=== PATIENT | female | born 1950 | race Caucasian/White ===

== ENCOUNTER → 2020-08-25 | Day surgery (SDC) | payer MEDICARE, OTHER ==
[~2020-08-25] MED LIST: ALBU2.5V14 NEB; HYOS0.3716 PO; IV RINGERS,LACTATED 1000ML 1,000 ML IV SCH; LIDOCAINE 2% PF 5 ML VIAL. ONE; ONDA4TAB12 PO; PROPOFOL 10 MG/ML (20ML) VIAL. IV ONE; VENTOLIN HFA18 GM INH
[2020-08-25 14:04] VITALS: BP 128/65
--- NOTE | 2020-08-30 12:07 | PATHOLOGY ---
[facility] Accession Number: [id number] . 01 Material submitted: . PART A: duodenum - DUODENAL BIOPSY PART B: colon - RANDOM COLON BIOPSY . 01 Clinical history: . ABDOMINAL PAIN AND WEIGHT LOSS ON COLOGUARD MEDICATION FOR A- RULE OUT CELIAC . 02 Diagnosis: A. Small bowel, "duodenum", biopsy: - Duodenal mucosa without significant pathologic alteration. . B. Large bowel, "random colon", biopsy: - Large bowel mucosa without significant pathologic alteration. . (MLK:mml; 08/29/2020) [facility] 08/30/2020 1149 Local . 02 Electronically signed: . Emilee Guevara MD, Pathologist NPI- [id number] . 01 Gross description: . A. The specimen is received in formalin, labeled "Park Lu", "duodenal biopsy rule out celiac". Received are multiple segments of pale moreno soft tissue ranging in size from 0.1 cm to 0.3 cm. The specimen is entirely submitted in cassette A1. . B. The specimen is received in formalin, labeled "Park Lu", "random colon biopsy". Received are multiple segments of pale moreno soft tissue ranging in size from 0.1 cm to 0.3 cm. The specimen is entirely submitted in cassettes B1 and B2.(SNA; 08/26/2020) [facility] 08/26/2020 0927 Local . 02 Pathologist provided ICD-10: R10.9 . 02 CPT . 840803, [id number] Specimen Comment: A courtesy copy of this report has been sent to [phone] Specimen Comment: [id number] Specimen Comment: Report sent to / DR HERNÁNDEZ Performed at: 01 [facility] [address] [id number] MD Francisco Royal MD Phone: [phone] Performed at: 02 [facility] [address] [id number] MD Wolf Pickens MD Phone: [phone]
== END | disposition home or self-care (01) ==
LOC: ENDOS 10:53
PROVIDERS: ATTEND Internal Medicine Gastroenterology
DX: R19.7 Diarrhea, unspecified (principal); R19.5 Other fecal abnormalities; K64.0 First degree hemorrhoids; K57.30 Diverticulosis of large intestine without perforation or abscess without bleeding; R10.13 Epigastric pain; R63.4 Abnormal weight loss; K31.89 Other diseases of stomach and duodenum; K63.89 Other specified diseases of intestine; I10 Essential (primary) hypertension; E78.00 Pure hypercholesterolemia, unspecified; J43.9 Emphysema, unspecified; K21.9 Gastro-esophageal reflux disease without esophagitis; M19.90 Unspecified osteoarthritis, unspecified site; F41.9 Anxiety disorder, unspecified; F32.9 Major depressive disorder, single episode, unspecified; Z85.3 Personal history of malignant neoplasm of breast; Z90.49 Acquired absence of other specified parts of digestive tract; Z98.890 Other specified postprocedural states; Z90.710 Acquired absence of both cervix and uterus; Z87.440 Personal history of urinary (tract) infections; Z79.899 Other long term (current) drug therapy; Z88.1 Allergy status to other antibiotic agents; Z88.2 Allergy status to sulfonamides; Z88.8 Allergy status to other drugs, medicaments and biological substances; Z20.822 Contact with and (suspected) exposure to COVID-19
CPT/HCPCS: 43239; 45380; 87426; J2704; 88305